=== PATIENT | female | born 1975 | race Asian ===

== ENCOUNTER 2022-03-02 08:45 | Outpatient (REF) | payer OTHER, SELFPAY ==
--- NOTE | ~2022-03-02 | XR_ITS ---
EXAMINATION: XR KNEES, STANDING AP XR KNEE, RIGHT XR KNEE, LEFT CLINICAL INFORMATION: Bilateral knee pain. COMPARISON: None TECHNIQUE: Standing AP view of both knees is performed. Each knee is also imaged in lateral and axial patella views. FINDINGS: Right: There are degenerative changes medial knee joint compartment with joint narrowing and marginal osteophyte from medial femoral condyle. No erosive change or chondrocalcinosis. There is trace suprapatellar effusion. Hoffa's fat pad appears normal. There is also narrowing patellofemoral joint. Left: There are degenerative changes medial knee joint compartment with joint narrowing and marginal osteophyte from medial femoral condyle and medial tibial plateau. No erosive change or chondrocalcinosis. No effusion. Hoffa's fat pad appears normal. There is also narrowing patellofemoral joint. XR/XR knee LT 2V IMPRESSION: -Bilateral narrowing medial knee joint compartments. -Bilateral narrowing patellofemoral joints. -Trace right suprapatellar effusion. No left effusion.
--- NOTE | ~2022-03-02 | XR_ITS ---
EXAMINATION: XR KNEES, STANDING AP XR KNEE, RIGHT XR KNEE, LEFT CLINICAL INFORMATION: Bilateral knee pain. COMPARISON: None TECHNIQUE: Standing AP view of both knees is performed. Each knee is also imaged in lateral and axial patella views. FINDINGS: Right: There are degenerative changes medial knee joint compartment with joint narrowing and marginal osteophyte from medial femoral condyle. No erosive change or chondrocalcinosis. There is trace suprapatellar effusion. Hoffa's fat pad appears normal. There is also narrowing patellofemoral joint. Left: There are degenerative changes medial knee joint compartment with joint narrowing and marginal osteophyte from medial femoral condyle and medial tibial plateau. No erosive change or chondrocalcinosis. No effusion. Hoffa's fat pad appears normal. There is also narrowing patellofemoral joint. XR/XR knee RT 2V IMPRESSION: -Bilateral narrowing medial knee joint compartments. -Bilateral narrowing patellofemoral joints. -Trace right suprapatellar effusion. No left effusion.
--- NOTE | ~2022-03-02 | XR_ITS ---
EXAMINATION: XR KNEES, STANDING AP XR KNEE, RIGHT XR KNEE, LEFT CLINICAL INFORMATION: Bilateral knee pain. COMPARISON: None TECHNIQUE: Standing AP view of both knees is performed. Each knee is also imaged in lateral and axial patella views. FINDINGS: Right: There are degenerative changes medial knee joint compartment with joint narrowing and marginal osteophyte from medial femoral condyle. No erosive change or chondrocalcinosis. There is trace suprapatellar effusion. Hoffa's fat pad appears normal. There is also narrowing patellofemoral joint. Left: There are degenerative changes medial knee joint compartment with joint narrowing and marginal osteophyte from medial femoral condyle and medial tibial plateau. No erosive change or chondrocalcinosis. No effusion. Hoffa's fat pad appears normal. There is also narrowing patellofemoral joint. XR/XR knee standing BI IMPRESSION: -Bilateral narrowing medial knee joint compartments. -Bilateral narrowing patellofemoral joints. -Trace right suprapatellar effusion. No left effusion.
== END 2022-03-02 08:46 | disposition home or self-care (01) ==
LOC: HO.HOSX 08:45
PROVIDERS: Visit Provider Orthopaedic Surgery
DX: M17.0 Bilateral primary osteoarthritis of knee (principal); G50.0 Trigeminal neuralgia
CPT/HCPCS: 20610; 73560; 73565; 99202; J1100

== ENCOUNTER → 2022-04-06 13:46 | Outpatient (BNVA) | payer OTHER, SELFPAY | PROVIDERS: PCP Internal Medicine; Visit Provider Nurse Practitioner Family | DX: G50.0 Trigeminal neuralgia (principal) | CPT/HCPCS: 99202 ==

== ENCOUNTER → 2022-05-04 15:24 | Outpatient (BNVA) | payer OTHER, SELFPAY | PROVIDERS: PCP Internal Medicine; Visit Provider Orthopaedic Surgery | DX: M54.16 Radiculopathy, lumbar region (principal); M17.0 Bilateral primary osteoarthritis of knee | CPT/HCPCS: 99212 ==

== ENCOUNTER → 2022-05-11 15:02 | Outpatient (BNVA) | payer OTHER, SELFPAY | PROVIDERS: PCP Internal Medicine; Visit Provider Nurse Practitioner Family | DX: G50.0 Trigeminal neuralgia (principal); Z79.899 Other long term (current) drug therapy | CPT/HCPCS: Q3014 ==

== ENCOUNTER 2023-08-08 10:13 | Outpatient (REF) | payer OTHER, SELFPAY ==
[2023-08-08 12:18] LABS: Alanine Aminotransferase 15 U/L (0-31); Alkaline Phosphatase 130 U/L (39-117); Anion Gap 13 (12-20); Aspartate Amino Transferase 14 U/L (5-31); Bilirubin Total 0.3 mg/dL (0.0-1.0); Blood Urea Nitrogen 10 mg/dL (9-16); Calcium 9.4 mg/dL (8.4-10.2); Carbon Dioxide 25 mmol/L (22-29); Chloride 104 mmol/L (96-108); Cholesterol 222 mg/dL (<200); Estimated Glomerular Filt Rate > 60; Glucose Random 106 mg/dL (60-115); HDL Cholesterol 73 mg/dL (>40); LDL Cholesterol Calculated 128 mg/dL (<100); Potassium 4.5 mmol/L (3.3-5.1); Sodium 137 mmol/L (135-145); Total Protein 7.3 g/dL (6.5-8.0); Triglycerides 105 mg/dL (<150)
== END 2023-08-08 10:14 | disposition home or self-care (01) ==
LOC: HO.10HDL 10:13
PROVIDERS: Visit Provider Internal Medicine
DX: Z00.00 Encounter for general adult medical examination without abnormal findings (principal); E03.9 Hypothyroidism, unspecified; E78.00 Pure hypercholesterolemia, unspecified; G50.0 Trigeminal neuralgia; I10 Essential (primary) hypertension
CPT/HCPCS: 36415; 80053; 80061; 84443

== ENCOUNTER 2023-11-22 14:42 | Outpatient (REF) | payer OTHER, SELFPAY ==
--- NOTE | ~2023-11-22 | XR_ITS ---
EXAMINATION: XR BILATERAL KNEES CLINICAL INFORMATION: Reason for Exam M25.561 - Pain in right knee COMPARISON: Knee radiographs 03/02/2022 TECHNIQUE: 2 views of each knee and one view of the bilateral knees standing. FINDINGS: RIGHT KNEE: No acute fracture or dislocation. Moderate osteophytes of the knee with loss of medial compartment joint space and lateral and patellofemoral compartment osteophytes progressed from prior. Small suprapatellar joint effusion. Unremarkable. LEFT KNEE: No acute fracture or dislocation. Moderate osteoarthritis of the knee with loss of medial compartment joint space and medial and lateral compartment osteophytes progressed from prior. No joint effusion. Soft tissues are unremarkable. XR/XR knee LT 3V IMPRESSION: 1. Moderate degenerative changes of the bilateral knees progressed from prior. 2. Small right suprapatellar joint effusion.
--- NOTE | ~2023-11-22 | XR_ITS ---
EXAMINATION: XR BILATERAL KNEES CLINICAL INFORMATION: Reason for Exam M25.561 - Pain in right knee COMPARISON: Knee radiographs 03/02/2022 TECHNIQUE: 2 views of each knee and one view of the bilateral knees standing. FINDINGS: RIGHT KNEE: No acute fracture or dislocation. Moderate osteophytes of the knee with loss of medial compartment joint space and lateral and patellofemoral compartment osteophytes progressed from prior. Small suprapatellar joint effusion. Unremarkable. LEFT KNEE: No acute fracture or dislocation. Moderate osteoarthritis of the knee with loss of medial compartment joint space and medial and lateral compartment osteophytes progressed from prior. No joint effusion. Soft tissues are unremarkable. XR/XR knee RT 3V IMPRESSION: 1. Moderate degenerative changes of the bilateral knees progressed from prior. 2. Small right suprapatellar joint effusion.
== END 2023-11-22 14:43 | disposition home or self-care (01) ==
LOC: HO.HOSX 14:42
PROVIDERS: PCP Internal Medicine; Visit Provider Orthopaedic Surgery
DX: M17.0 Bilateral primary osteoarthritis of knee (principal)
CPT/HCPCS: 73562; 99212

== ENCOUNTER 2023-11-22 14:42 | Outpatient (AMB) | payer OTHER, SELFPAY ==
--- NOTE | 2023-11-22 14:50 | MHC.OFFVIS ---
Intake Visit Reasons: ov- bilateral knee pain Intake Note: Stephan is a 48 year old female who presents today for a follow up of her bilateral knee pain. patient reports she wants to get an x ray of her both knees to see if she would like to repeat injection Allergies No Known Allergies Allergy (Verified 11/22/23 14:53) HPI HPI ov- bilateral knee pain: Details: 48-year-old woman here today with bilateral knee pain. She is pain with stairs pain with standing pain with extended ambulation. She feels limited in her ability to walk without pain. She denies injury. I have previously injected her knees several years ago which found moderately helpful. Does home exercises but minimal. [facility] Medical History Status post gamma knife treatment Surgical History History of brain surgery History of cholecystectomy Hx of appendectomy Physical Exam Const General: cooperative, healthy appearing, no acute distress, well developed and alert HEENT Head: Yes normal to inspection, Yes normocephalic and Yes atraumatic Mouth: moist mucous membranes Eyes General: appearance normal, both eyes and all related structures EOM: EOMs intact bilaterally Chest Other: no audible wheezing. Resp Other: No audible wheezing Effort & Inspection: normal respiratory effort Back/Spine/Pelvis Cervical Spine: normal cervical lordosis Skin General skin exam: no rashes or lesions noted Neuro General: no focal motor deficits Extrem Other: There is tenderness to palpation bilateral medial compartments. Trace effusion left greater than right. Stable to varus valgus stress. 0-125 degrees of motion bilaterally. Psych Appearance: grossly normal and well kempt Mental Status: mental status grossly normal Speech and movement: Normal speech and movement present Affect: normal affect Attitude: cooperative Results Reviewed Results Reviewed: I personally reviewed relevant radiographs. Moderate severe bilateral knee arthritis affecting mostly the medial compartment Assessment & Plan Assessment & Plan (1) Arthritis of both knees: Code(s): M17.0 - Bilateral primary osteoarthritis of knee Category: Medical Plan: This is a 48-year-old woman with bilateral knee osteoarthritis. Benefit from injections in the past and I recommend injection again. She would like to have her present with her so she can have someone to drive her home afterward. She will make an appointment to schedule for injections future. He has also been using a handicap placard as she is unable to walk long distances. I think this is reasonable and I will sign 1 for temporary handicap status. Orders: Orders XR knee RT 3V Today M25.561 - Pain in right knee XR knee LT 3V Today M25.562 - Pain in left knee Coding Level of Care Code Est Pt Level 4 (93851) Diagnoses Arthritis of both knees M17.0
== END 2023-11-22 16:25 | disposition home or self-care (01) ==
PROVIDERS: PCP Internal Medicine; Visit Provider Orthopaedic Surgery
DX: M17.0 Bilateral primary osteoarthritis of knee (principal)
CPT/HCPCS: 99214

== ENCOUNTER 2024-02-11 14:53 | Outpatient (AMB) | payer OTHER, SELFPAY ==
--- NOTE | 2024-02-11 14:54 | MHC.OFFVIS ---
Intake Visit Reasons: Inj-B/L knee injections Intake Note: Stephan is a 48 year old female who presents today for bilateral knee injections, last injections administered on 05/04/2022. She reports that these injections were mildly helpful and wishes to repeat injections today Allergies No Known Allergies Allergy (Verified 11/22/23 14:53) HPI HPI Inj-B/L knee injections: Details: Stephan is a 48 year old female who presents today for bilateral knee injections, last injections administered on 05/04/2022. She reports that these injections were mildly helpful and wishes to repeat injections today [facility] Medical History Status post gamma knife treatment Surgical History History of brain surgery History of cholecystectomy Hx of appendectomy Physical Exam Const General: cooperative, healthy appearing, no acute distress, well developed and alert HEENT Head: Yes normal to inspection, Yes normocephalic and Yes atraumatic Mouth: moist mucous membranes Eyes General: appearance normal, both eyes and all related structures EOM: EOMs intact bilaterally Chest Other: no audible wheezing. Resp Other: No audible wheezing Effort & Inspection: normal respiratory effort Back/Spine/Pelvis Cervical Spine: normal cervical lordosis Skin General skin exam: no rashes or lesions noted Neuro General: no focal motor deficits Extrem Other: There is tenderness to palpation bilateral medial compartments. Trace effusion left greater than right. Stable to varus valgus stress. 0-125 degrees of motion bilaterally. Psych Appearance: grossly normal and well kempt Mental Status: mental status grossly normal Speech and movement: Normal speech and movement present Affect: normal affect Attitude: cooperative Office Procedures Joint Injection/Aspiration Joint Injection/Aspiration Details: Injected 1 mL of Decadron and 3 mL 1% lidocaine and 3 mL of 0.25% Marcaine. Site was prepped using aseptic technique. Patient tolerated the procedure well. Primary Site: right knee Secondary Site: left knee Approach Used: anterolateral Coding - Large joint - Glenohumeral/Tronchanteric Bursa/Intraarticular Procedure code (CPT) selection complete Assessment & Plan Assessment & Plan (1) Arthritis of both knees: Code(s): M17.0 - Bilateral primary osteoarthritis of knee Category: Medical Plan: This is a 48-year-old woman with bilateral knee osteoarthritis. Benefit from injections in the past and I recommend injection again. She found this helpful last time and so bilateral knees were injected. If this is helpful for < 2 months I would recommend gel injections. Coding Level of Care Code Est Pt Level 3 (59567) Diagnoses Arthritis of both knees M17.0 CPT Codes Coding - 71029 Large joint: 02508 - Large joint ([id number]) Coding - Joint 7: 08302 - Glenohumeral/Tronchanteric Bursa/Intraarticular ([id number])
== END 2024-02-11 15:52 | disposition home or self-care (01) ==
PROVIDERS: PCP Internal Medicine; Visit Provider Orthopaedic Surgery
DX: M17.0 Bilateral primary osteoarthritis of knee (principal)
CPT/HCPCS: 20610; 99213

== ENCOUNTER → 2024-02-11 14:53 | Outpatient (BNVA) | payer OTHER, SELFPAY | PROVIDERS: PCP Internal Medicine; Visit Provider Orthopaedic Surgery | DX: M17.0 Bilateral primary osteoarthritis of knee (principal) | CPT/HCPCS: 20610; 99212; J0665; J1100 ==

== ENCOUNTER 2025-01-05 14:52 | Outpatient (AMB) | payer OTHER, SELFPAY ==
--- NOTE | 2025-01-05 14:56 | MHC.OFFVIS ---
Intake Visit Reasons: Bilateral Knee Injections - Last done 02/11/24 Intake Note: Stephan is a 49 year old female who presents today for repeat bilateral knee injections, last administered 02/11/24. She states that mild relief from last injection. Allergies No Known Allergies Allergy (Verified 11/22/23 14:53) HPI HPI Bilateral Knee Injections - Last done 02/11/24: Details: Stephan is a 49 year old female who presents today for repeat bilateral knee injections, last administered 02/11/24. She states that there was some relief from last injecton. She describes bilateral knee pain worse iwth standing from a seated position and stairs. PENDING SALE TO [facility] Medical History Status post gamma knife treatment Surgical History History of brain surgery History of cholecystectomy Hx of appendectomy Physical Exam Const General: cooperative, healthy appearing, no acute distress, well developed and alert HEENT Head: Yes normal to inspection, Yes normocephalic and Yes atraumatic Mouth: moist mucous membranes Eyes General: appearance normal, both eyes and all related structures EOM: EOMs intact bilaterally Chest Other: no audible wheezing. Resp Other: No audible wheezing Effort & Inspection: normal respiratory effort Back/Spine/Pelvis Cervical Spine: normal cervical lordosis Skin General skin exam: no rashes or lesions noted Neuro General: no focal motor deficits Extrem Other: There is tenderness to palpation bilateral medial compartments. Trace effusion left greater than right. Stable to varus valgus stress. 0-125 degrees of motion bilaterally. Psych Appearance: grossly normal and well kempt Mental Status: mental status grossly normal Speech and movement: Normal speech and movement present Affect: normal affect Attitude: cooperative Office Procedures Joint Inj/Aspir; Non-Pain Clin Joint Injection/Drain Details: Injected 1 mL of Decadron and 3 mL 1% lidocaine and 3 mL of 0.25% Marcaine. Site was prepped using aseptic technique. Patient tolerated the procedure well. Shoulders, Hips, Knees, Knee Large Joint Injection : Bilateral Knee Coding Procedure code (CPT) selection complete Results Reviewed Results Reviewed: I personally reviewed relevant radiographs. Moderate severe bilateral knee arthritis affecting mostly the medial compartment Assessment & Plan Assessment & Plan (1) Tricompartment osteoarthritis of knees, bilateral: Code(s): M17.0 - Bilateral primary osteoarthritis of knee Category: Medical Plan: This is a 48-year-old woman with bilateral knee osteoarthritis. Benefit from injections in the past and I recommend injection again. She found this helpful last time and so bilateral knees were injected. If this is helpful for < 2 months I would recommend gel injections. Coding Level of Care Code Est Pt Level 3 (74179) Diagnoses Tricompartment osteoarthritis of knees, bilateral M17.0 CPT Codes Shoulders, Hips, Knees, - Knee Large Joint Injection : Bilateral Knee ([id number])
--- OUTSIDE RECORDS SUMMARY | 2025-01-05 16:26 | XMS_ITS | Clinical Summary ---
Author Organization [facility] Address [address] [place] [address] Care Team Providers Care Hide Grader Name Role Phone Carmine Infante MD Primary Care Provider [phone] Social History Tobacco Use Types Packs/Day Years Used Date Smoking Tobacco: Never Assessed Comments Unknown Sex and Gender Information Value Date Recorded Sex Assigned at Not on file Legal Sex Female 9:02 PM EST Gender Identity Not on file Sexual Orientation Not on file Plan of Treatment Health Maintenance Due Date Last Done Comments Breast Cancer Screening 1975 DTaP,Tdap,and Td Vaccines (1 - Tdap) 1993 Hepatitis B Vaccines (1 of 3 - 19+ 3-dose series) 1993 Cervical Cancer Screening: P ap Smear 1995 COVID-19 Vaccine ( - 2023-2 5 season) 2024 Pneumococcal Vaccine: 50+ Ye ars (1 of 1 - PCV) 2024 Zoster Vaccines (1 of 2) 2024 Influenza Vaccine (Season Ended) 2025 HIB Vaccines Aged Out No longer eligi ble based on patient's age to complete this topic HPV Vaccines Aged Out No longer eligi ble based on patient's age to complete this topic Hepatitis A Vaccines Aged Out No long er eligible based on patient's age to complete this topic IPV Vaccines Aged Out No longer eligi ble based on patient's age to complete this topic MMR Vaccines Aged Out No longer eligi ble based on patient's age to complete this topic Meningococcal ACWY Vaccine Aged Out N o longer eligible based on patient's age to complete this topic Meningococcal B Vaccine Aged Out No l onger eligible based on patient's age to complete this topic Pneumococcal Vaccine: Pediat rics (0 to 5 Years) and At-Risk Patients (6 to 64 Years) Aged Out No longer eligible b ased on patient's age to complete this topic RSV Immunization Patients Un farheen 20 months Aged Out No longer eligible b ased on patient's age to complete this topic Varicella Vaccines Aged Out No longer eligible based on patient's age to complete this topic Advance Directives Documents on File Type Date Recorded Patient Investigative Research Specialist Expl anation Health Care Decision (hx) 12/24/2016 AD ENRIQUE DIRECTIVE Health Care Decision (hx) 12/20/2016 AD ENRIQUE DIRECTIVE Care Teams Hide Grader Relationship Specialty Start Date End Date Carmine Infante MD [address] [place] [id number] PCP - General Internal Medicine 10/20/16
== END 2025-01-05 15:19 | disposition home or self-care (01) ==
LOC: HO.HOS 14:53
PROVIDERS: PCP Internal Medicine; Visit Provider Orthopaedic Surgery
DX: M17.0 Bilateral primary osteoarthritis of knee (principal)
CPT/HCPCS: 20610; 99213

== ENCOUNTER → 2025-01-05 14:52 | Outpatient (BNVA) | payer OTHER, SELFPAY | PROVIDERS: PCP Internal Medicine; Visit Provider Orthopaedic Surgery | DX: M17.0 Bilateral primary osteoarthritis of knee (principal) | CPT/HCPCS: 20610; 99212; J0665; J1100; J2003 ==

== ENCOUNTER 2025-05-07 14:32 | Outpatient (AMB) | payer OTHER, SELFPAY ==
--- OUTSIDE RECORDS SUMMARY | 2024-10-01 10:40 | XMS_ITS ---
Author Organization [facility] Address [address] [place] [address] Care Team Providers Care Lmsw Name Role Phone Courtney Bey Primary Care Provider Unavailab Dennys Blanco [phone] REASON FOR VISIT Patient presents today for a screening colonoscopy Encounters Encounter Location Date Provider Diagnosis [facility] [address] [place] [address] 10/01/2024 Dennys Chow Plan Of Treatment No Information Progress Notes * LIANA GODOYDOB:1975 (49 yo F)Acc No.[id number]:10/01/2024 Progress Notes Patient: LIANA LOPEZ Provider: Jeffery Chow MD :1975 A ge:49 Y S ex:Female Date:10/01/2024 Address: [address] [id number] Pcp:Courtney Bey Subjective: * Chief Complaints: * [...] Pending * Provider: Jeffery Chow MD Date: 0 10/01/2024 Generated for Eyal weldon/Darlyn/Doyleitting on: 06:24 PM EDT
--- NOTE | 2025-05-07 14:38 | A.OFFVIS_ITS ---
Intake Visit Reasons: Bilateral Knee Injections - Last done 01/05/25 Intake Note: Stephan is a 49 year old female who presents today for repeat bilateral knee injections. last injections were administered 01.05.25. Patient reports that these injections were not helpful and she is interested in discussing alternati ve treatment options such as Gel and PRP. Allergies No Known Allergies Allergy (Verified 11/22/23 14:53) HPI HPI Bilateral Knee Injections - Last done 01/05/25: Details: Stephan is a 49 year old female who presents today for repeat bilateral knee injections. last injections were administered 01.05.25. Patient reports that these injections were not helpful and she is interested in discussing alternative treatment options such as Gel and PRP. She states the pain is not bad enough to warrant surgery. Mostly she has difficulty standing from a seated position and going up and downstairs. [facility] Medical History Status post gamma knife treatment Surgical History History of brain surgery History of cholecystectomy Hx of appendectomy Physical Exam Const General: cooperative, healthy appearing, no acute distress, well developed and alert HEENT Head: Yes normal to inspection, Yes normocephalic and Yes atraumatic Mouth: moist mucous membranes Eyes General: appearance normal, both eyes and all related structures EOM: EOMs intact bilaterally Chest Other: no audible wheezing. Resp Other: No audible wheezing Effort & Inspection: normal respiratory effort Back/Spine/Pelvis Cervical Spine: normal cervical lordosis Skin General skin exam: no rashes or lesions noted Neuro General: no focal motor deficits Extrem Other: There is tenderness to palpation bilateral medial compartments. Trace effusion left greater than right. Stable to varus valgus stress. 0-125 degrees of motion bilaterally. Psych Appearance: grossly normal and well kempt Mental Status: mental status grossly normal Speech and movement: Normal speech and movement present Affect: normal affect Attitude: cooperative Assessment & Plan Assessment & Plan (1) Tricompartment osteoarthritis of knees, bilateral: Code(s): M17.0 - Bilateral primary osteoarthritis of knee Category: Medical Plan: Steroid injections have become decreasingly helpful. She has bilateral knee OA and does not want surgery. I recommend gel supplementation. If that is not helpful we can consider PRP. She is in agreement. Coding Level of Care Code Est Pt Level 3 (49292) Diagnoses Tricompartment osteoarthritis of knees, bilateral M17.0
--- OUTSIDE RECORDS SUMMARY | 2025-05-07 18:24 | XMS_ITS | Patient Health Record ---
Author Organization [facility] Address [address] [place] [address] Care Team Providers Care Sports Physical Therapist Name Role Phone Silkeeverardo Courtney Primary Care Provider UnavailDennys Hoffmann [phone] Reason For Referral No Information Encounters Encounter Location Date Provider Diagnosis [facility] [address] [place] [address] 10/01/2024 Dennys Chow Plan Of Treatment No Information Insurance Providers Payer Name Payer Address Payer Phone Subscriber Number Group Number Insured Name Patient Relationship to Insured Coverage Start Date Coverage End Date [facility] [address] [place] [address] [id number] LIANA GODOY Self - patient is the insured MEDICAID [id number] [address] [place] [id number] LIANA GODOY Self - patient is the insured
--- OUTSIDE RECORDS SUMMARY | 2025-05-07 18:24 | XMS_ITS | Clinical Summary ---
Author Organization [facility] Address [address] [place] [address] Care Team Providers Care Red Mud Thickener Operator Name Role Phone Carmine Infante MD Primary Care Provider [phone] Social History Tobacco Use Types Packs/Day Years [...] Cervical Cancer Screening: P ap Smear 1995 Pneumococcal Vaccine: 50+ Ye ars (1 of 1 - PCV) 2024 Zoster Vaccines (1 of 2) 2024 Depression Screening 07/16/2024 COVID-19 Vaccine (1 - 2023-2 5 season) 2025 Influenza Vaccine (#1) 2025 RSV Immunization Adult Patie nts (1 - 1-dose 75+ series) 2049 HIB Vaccines Aged Out No longer eligi [...] Documents on File Type Date Recorded Patient Director Of Architecture Expl anation Health Care Decision (hx) 12/24/2016 AD ENRIQUE DIRECTIVE Health Care Decision (hx) 12/20/2016 AD ENRIQUE DIRECTIVE Care Teams Red Mud Thickener Operator Relationship Specialty Start Date End Date Carmine Infante MD [address] [place] [id number] PCP - General Internal Medicine 10/20/16
== END 2025-05-07 15:02 | disposition home or self-care (01) ==
PROVIDERS: PCP Internal Medicine; Visit Provider Orthopaedic Surgery
DX: M17.0 Bilateral primary osteoarthritis of knee (principal)
CPT/HCPCS: 99213

== ENCOUNTER → 2025-05-07 14:32 | Outpatient (BNVA) | payer OTHER, SELFPAY | PROVIDERS: PCP Internal Medicine; Visit Provider Orthopaedic Surgery | DX: M17.0 Bilateral primary osteoarthritis of knee (principal) | CPT/HCPCS: 99212; J0665; J1100; J2003 ==

== ENCOUNTER 2025-05-21 14:36 | Outpatient (AMB) | payer OTHER, SELFPAY ==
--- OUTSIDE RECORDS SUMMARY | 2024-10-01 09:40 | XMS_ITS ---
Author Organization [facility] Address [address] [place] [address] Care Team Providers Care Warehouse Shift Supervisor Name Role Phone Courtney Bey Primary Care Provider Unavailab Dennys Blanco [phone] REASON FOR VISIT Patient presents today for a screening colonoscopy Encounters Encounter Location Date Provider Diagnosis [facility] [address] [place] [address] 10/01/2024 Dennys Chow Plan Of Treatment No Information Progress Notes * LIANA GODOYDOB:1975 (49 yo F)Acc No.[id number]:10/01/2024 Progress Notes Patient: LIANA LOPEZ Provider: Jeffery Chow MD :1975 A ge:49 Y S ex:Female Date:10/01/2024 Address: [address] [id number] Pcp:Courtney Bey Subjective: * Chief Complaints: * 1 . Patient presents today for a screening colonoscopy. * Medical History: Objective: * Vitals: Assessment: Plan: * Treatment: * * The named appointment provid er may or may not be the originator of this progress note, and it is not deemed complete until electronically signed by the appointment provider. Sign off status: Pending * Provider: Jeffery Chow MD Date: 10/01/2024 Generated for Eyal weldon/Darlyn/Doyleitting on: 07/21/2024 05:51 PM EST
--- NOTE | 2025-05-21 14:53 | MHC.OFFVIS ---
Intake Visit Reasons: INJ - Bilateral Knee Durolane Intake Note: Stephan is a 49 year old female who presents today for bilateral knee Durolane injections. Allergies No Known Allergies Allergy (Verified 11/22/23 14:53) HPI HPI INJ - Bilateral Knee Durolane: Details: Stephan is a 49 year old female who presents today for bilateral knee Durolane injections. [facility] Medical History Status post gamma knife treatment Surgical History History of brain surgery History of cholecystectomy Hx of appendectomy Physical Exam Exam Exam: NAD skin c/d/i bilateral knees Office Procedures Joint Inj/Aspir; Non-Pain Clin Joint Injection/Drain Details: Injected Durolane. Site was prepped using aseptic technique. Patient tolerated the procedure well. Shoulders, Hips, Knees, Knee Large Joint Injection : Bilateral Knee Coding Procedure code (CPT) selection complete Assessment & Plan Assessment & Plan (1) Tricompartment osteoarthritis of knees, bilateral: Code(s): M17.0 - Bilateral primary osteoarthritis of knee Category: Medical Plan: Durolane inejcted bialteral knees. No complications. May follow up prn in no less than 3 months Coding Level of Care Code Est Pt Level 2 (68865) Diagnoses Tricompartment osteoarthritis of knees, bilateral M17.0 CPT Codes Shoulders, Hips, Knees, - Knee Large Joint Injection 14852: Bilateral Knee ([id number])
--- OUTSIDE RECORDS SUMMARY | 2025-05-21 17:51 | XMS_ITS | Clinical Summary ---
Author Organization [facility] ity Address [address] [place] [address] Care Team Providers Care Electric Brain Wave Equipment Mechanic Name Role Phone Carmine Infante MD Primary Care Provider [phone] Social History Tobacco Use Types Packs/Day Years [...] Documents on File Type Date Recorded Patient Supervisor Rolling Room Expl anation Health Care Decision (hx) 12/24/2016 AD ENRIQUE DIRECTIVE Health Care Decision (hx) 12/20/2016 AD ENRIQUE DIRECTIVE Care Teams Electric Brain Wave Equipment Mechanic Relationship Specialty Start Date End Date Carmine Infante MD [address] [place] [id number] PCP - General Internal Medicine 10/20/16
--- OUTSIDE RECORDS SUMMARY | 2025-05-21 17:51 | XMS_ITS | Patient Health Record ---
Author Organization [facility] Address [address] [place] [address] Care Team Providers Care Media Coordinator Name Role Phone Silkeeverardo Courtney Primary Care Provider UnavailDennys Hoffmann [phone] Reason For Referral No Information Encounters Encounter Location Date Provider Diagnosis [facility] [address] [place] [address] 10/01/2024 Dennys Chow Plan Of Treatment No Information Insurance Providers Payer Name Payer Address Payer Phone Subscriber Number Group Number Insured Name Patient Relationship to Insured Coverage Start Date Coverage End Date [facility] [address] [place] [address] [id number] LIANA GODOY Self - patient is the insured [employer] [facility] [address] [place] [phone] [id number] LIANA GODOY Self - patient is the insured
== END 2025-05-21 15:04 | disposition home or self-care (01) ==
LOC: HO.HOS 14:36
PROVIDERS: PCP Internal Medicine; Visit Provider Orthopaedic Surgery
DX: M17.0 Bilateral primary osteoarthritis of knee (principal)
CPT/HCPCS: 20610

== ENCOUNTER → 2025-05-21 14:36 | Outpatient (BNVA) | payer OTHER, SELFPAY | PROVIDERS: PCP Internal Medicine; Visit Provider Orthopaedic Surgery | DX: M17.0 Bilateral primary osteoarthritis of knee (principal) | CPT/HCPCS: 20610; J7318 ==